=== PATIENT | male | born 1975 | race Caucasian/White ===

== ENCOUNTER 2019-07-15 09:41 | Emergency (ER) | payer MEDICARE, OTHER ==
--- NOTE | 2019-07-15 10:39 | RADIOLOGY REPORT ---
EXAMINATION: Right Shoulder, Complete Minimum Two Views EXAM DATE: 07/15/2019 10:31 AM TECHNIQUE: AP, Grashey, and axillary INDICATION: pain in right shoulder COMPARISON: None ENCOUNTER: Initial FINDINGS: There is some ovoid ossification near the superolateral margin of the right head of the humerus in th e expected location of the rotator cuff insertion suggesting calcific tendinitis of the rotator cuff. No fracture or dislocation. IMPRESSION: Right rotator cuff calcific tendinitis. Dictated by: Nicanor Hawkins DO on 07/15/2019 10:36 AM. .
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
== END 2019-07-15 11:53 | disposition home or self-care (01) ==
LOC: ER 09:41
DX: M75.31 Calcific tendinitis of right shoulder (principal)
CPT/HCPCS: 99283